=== PATIENT | female | born 1960 | race Caucasian/White ===

== ENCOUNTER 2022-10-29 06:55 | Outpatient (OUT) | payer BC, SELFPAY ==
--- NOTE | 2022-10-29 07:00 | MM_ITS ---
Patient: JOANA BUCK Exam Date: 10/29/2022 : 1960 Gender:F Ordering : DR Elmer Keane . Admission #: [id number] Family : DR ALVARENGA JAYRIZWANA Order #: [id number] CLICK HERE TO VIEW EXAM RADIOLOGY REPORT PROCEDURE: MM TOMOSYNTHESIS SCREENING BI COMPARISON: MG MAMM SCREEN NELI W CAD, 11/23/2018. MG MAMM SCREEN 3D NELI CAD, 04/01/2021. INDICATIONS: Screening Calculator Name NCI Breast Cancer Risk Assessment Tool 5 Year Breast Cancer Risk 1.30% Lifetime Breast Cancer Risk 6.40% Personal Breast Cancer No Personal Ovarian Cancer No Treatments None Family Cancers None LOCATION: [facility] BREAST COMPOSITION: Scattered areas fibroglandular density. FINDINGS: DIAGNOSTIC CATEGORY 1--NEGATIVE. NO CHANGE FROM COMPARISON ASSESSMENT. Scattered benign-appearing calcifications are present. RIGHT BREAST: No significant suspicious finding. LEFT BREAST: No significant suspicious finding. RECOMMENDATIONS: ROUTINE MAMMOGRAM AND CLINICAL EVALUATION IN 12 MONTHS. PLEASE NOTE: A NORMAL MAMMOGRAM DOES NOT EXCLUDE THE POSSIBILITY OF BREAST CANCER. A CLINICALLY SUSPICIOUS PALPABLE LUMP SHOULD BE BIOPSIED. Dictated by: Claude Jean MD on 10/29/2022 at 08:32 Approved by: Claude Jean MD on 10/29/2022 at 08:34
== END 2022-10-29 06:56 | disposition home or self-care (01) ==
LOC: MAMMO 06:55
PROVIDERS: PCP Internal Medicine; Visit Provider Obstetrics & Gynecology
DX: Z12.31 Encounter for screening mammogram for malignant neoplasm of breast (principal)
CPT/HCPCS: 77063; 77067

== ENCOUNTER 2022-11-25 21:57 | Outpatient (REF) | payer BC, SELFPAY ==
[2022-12-01 12:09] LABS: Age Gdln ACOG Testing Note (.); HPV Aptima Negative (Negative); IGP, Aptima HPV, rfx 16/18,45 Note (.)
== END 2022-11-25 21:58 | disposition home or self-care (01) ==
LOC: LAB 21:57
PROVIDERS: PCP Internal Medicine; Visit Provider Physician Assistant
DX: Z01.419 Encounter for gynecological examination (general) (routine) without abnormal findings (principal)
CPT/HCPCS: 87624; G0145